=== PATIENT | female | born 1995 | race Caucasian/White ===

== ENCOUNTER 2017-10-26 16:08 | Outpatient (CLI) | payer MEDICAID ==
[2017-10-26 16:26] LABS: BASOPHILS # (AUTO) 0.1 10^3/uL (0.0-0.1); BASOPHILS % (AUTO) 0.5 %; EOSINOPHILS # (AUTO) 0.1 10^3/uL (0.0-0.7); EOSINOPHILS % (AUTO) 1.2 %; LYMPHOCYTES # (AUTO) 2.9 10^3/uL (1.5-3.5); LYMPHOCYTES % (AUTO) 27.1 %; MEAN CORPUSCULAR HEMOGLOBIN 29.1 pg (27.0-31.0); MEAN CORPUSCULAR HGB CONC 33.4 g/dL (32.0-36.0); MEAN CORPUSCULAR VOLUME 87.3 fL (81.0-99.0); MEAN PLATELET VOLUME 7.3 fL (7.9-10.8); MONOCYTES % (AUTO) 9.5 %; NEUTROPHILS # (AUTO) 6.6 10^3/uL (1.5-6.6); NEUTROPHILS % (AUTO) 61.7 %; PLT - PLATELET COUNT 303 10^3/uL (130-450); RED BLOOD COUNT 4.45 10^6/uL (4.20-5.40); RED CELL DISTRIBUTION WIDTH 14.1 % (12.0-15.0); WHITE BLOOD COUNT 10.8 x10^3/uL (4.8-10.8)
[2017-10-26 16:34] LABS: BILIRUBIN,URINE NEGATIVE (NEGATIVE); GLUCOSE, URINE (UA) NEGATIVE (NEGATIVE); KETONES,URINE (UA) NEGATIVE (NEGATIVE); LEUKOCYTE ESTERASE, URINE NEGATIVE (NEGATIVE); NITRITE,URINE NEGATIVE (NEGATIVE); OCCULT BLOOD,URINE NEGATIVE (NEGATIVE); PH,URINE 5.5 PH (5.0-7.5); PROTEIN,URINE NEGATIVE (NEGATIVE); UROBILINOGEN,URINE 1 (NORMAL) E.U./dL (NORMAL)
[2017-10-26 16:35] LABS: CLARITY,URINE CLEAR (CLEAR)
[2017-10-26 16:41] LABS: BACTERIA,URINE Moderate /HPF (None Seen); RBC,URINE 0-5 /HPF (0-5); SQUAMOUS EPITHELIAL CELL,UR MOD Squamous (<= Few)
[2017-10-27 13:31] LABS: HEPATITIS C ANTIBODY NON-REACTIVE (NON-REACTIVE)
[2017-10-27 13:33] LABS: HEPATITIS B SURFACE ANTIGEN NON-REACTIVE (NON-REACTIVE)
[2017-10-27 14:47] LABS: HIV AG/AB 4TH GEN NON-REACTIVE (NON-REACTIVE)
== END 2017-10-26 16:09 | disposition home or self-care (01) ==
LOC: LAB 16:08
PROVIDERS: ATTEND Obstetrics & Gynecology
DX: Z36.9 Encounter for antenatal screening, unspecified (principal)
CPT/HCPCS: 36415; 81001; 81599; 85025; 86592; 86762; 86803; 86850; 86900; 86901; 87340; 87389

== ENCOUNTER 2017-10-27 08:00 | Outpatient (CLI) | payer MEDICAID ==
[2017-10-27 15:16] LABS: MUDS CUTOFF CONCENTRATIONS CUTOFF CONC BELOW:
[2017-10-27 16:08] LABS: AMPHETAMINE SCREEN,URINE NEGATIVE (NEGATIVE); BENZODIAZEPINES SCREEN, URINE NEGATIVE (NEGATIVE); COCAINE SCREEN URINE NEGATIVE (NEGATIVE); METHADONE SCREEN, URINE NEGATIVE (NEGATIVE); METHAMPHETAMINES SCREEN, URINE NEGATIVE (NEGATIVE); OPIATE SCREEN, URINE NEGATIVE (NEGATIVE); OXYCODONE SCREEN, URINE NEGATIVE (NEGATIVE); PROPOXYPHENE SCREEN, URINE NEGATIVE (NEGATIVE); TRICYCLIC ANTIDEPRESSANT,URINE NEGATIVE (NEGATIVE)
== END 2017-10-27 08:01 | disposition home or self-care (01) ==
LOC: LAB.R 08:00
PROVIDERS: ATTEND Obstetrics & Gynecology
DX: Z36.9 Encounter for antenatal screening, unspecified (principal)
CPT/HCPCS: 80306

== ENCOUNTER 2017-11-13 10:41 | Outpatient (CLI) | payer MEDICAID ==
--- NOTE | 2017-11-13 16:05 | Ultrasound Report ---
Procedure Date: 11/13/2017 Accession Number: [id number] / [id number] Procedure: US - OB 14+ Weeks CPT Code: FULL RESULT: EXAM: OB 14+ Weeks DATE: 11/13/2017 12:06 PM CLINICAL HISTORY: ENCOUNTER FOR SCREENING, UNSPECIFIED TECHNIQUE: Real-time scanning was performed with office services representative static images obtained. COMPARISON: None LAST MENSTRUAL PERIOD: 07/19/2017 Clinical Age: 16 weeks 5 days US Age: 18 weeks 0 days EFW Hadlock: 214 grams EFW % Hadlock: 97% Heart Rate: 140 bpm EDC: 04/25/2018 US EDC: 04/16/2018 BPD Hadlock: 18 weeks 4 days; Mean mm 42 HC Hadlock: 18 weeks 0 days; Mean mm 150 AC Hadlock: 18 weeks 3 days; Mean mm 129 FL Hadlock: 17 weeks 1 days; Mean mm 24 Presentation: Variable Placental Location: Fundal/Anterior Cervical Length: 3.5 cm Amniotic Fluid: RENY Subjectively normal cm; MVP 11 cm FINDINGS: Within a fibroid uterus containing myometrial fibroids the largest of which measures 2.2 x 3.1 x 1.6 cm is a single viable intrauterine gestation in variable presentation with a fundal/anterior placenta without evidence of previa. The heart rate is 140 bpm and the sonographic age is 18 weeks and 0 days on today's exam. The cervix measures 3.5 cm and is closed. Adnexa appear unremarkable. IMPRESSION: Single viable intrauterine gestation with a sonographic age of 18 weeks and 0 days. Uterine fibroids.
== END 2017-11-13 10:42 | disposition home or self-care (01) ==
LOC: DI 10:41
PROVIDERS: ATTEND Obstetrics & Gynecology
DX: Z36.9 Encounter for antenatal screening, unspecified (principal); Z13.29 Encounter for screening for other suspected endocrine disorder; Z3A.18 18 weeks gestation of pregnancy
CPT/HCPCS: 36415; 76805; 84436; 84439; 84443

== ENCOUNTER 2017-11-13 10:52 | Outpatient (CLI) | payer MEDICAID ==
[2017-11-13 13:02] LABS: T4 (THYROXINE) 9.88 ug/dL (6.09-12.23)
[2017-11-13 13:06] LABS: THYROID STIMULATING HORMONE 1.35 uIU/mL (0.34-5.60)
[2017-11-13 13:08] LABS: FREE T4 (FREE THYROXINE) 0.61 ng/dL (0.58-1.64)
== END 2017-11-13 10:53 | disposition home or self-care (01) ==
LOC: LAB 10:52
PROVIDERS: ATTEND Obstetrics & Gynecology
DX: Z13.29 Encounter for screening for other suspected endocrine disorder (principal)
CPT/HCPCS: 36415; 84436; 84439; 84443

== ENCOUNTER 2017-11-16 17:02 | Outpatient (CLI) | payer MEDICAID | END 2017-11-16 17:03 | disposition home or self-care (01) | LOC: LAB 17:02 | PROVIDERS: ATTEND Obstetrics & Gynecology | DX: Z13.79 Encounter for other screening for genetic and chromosomal anomalies (principal) | CPT/HCPCS: 36415; 81599; 82105; 82677; 84702; 86336 ==

== ENCOUNTER 2017-11-30 12:37 | Outpatient (CLI) | payer MEDICAID ==
--- NOTE | 2017-11-30 15:29 | Ultrasound Report ---
Procedure Date: 11/30/2017 Accession Number: [id number] / [id number] Procedure: US - OB Detailed Eval CPT Code: FULL RESULT: EXAM: COMPLETE OBSTETRICAL ULTRASOUND EXAM DATE: 11/30/2017 02:10 PM. CLINICAL HISTORY: anatomic survey. COMPARISON: OB ultrasound 11/13/2017. TECHNIQUE: Real-time sonographic evaluation of the fetus performed by the financial health counselor. Multiple loss prevention representative static images were saved for review. DATING: Established EGA 20 weeks 3 days with OZZIE 04/16/2018 based on first ultrasound. EGA 20 weeks 5 days with OZZIE 04/14/2018 based on the current ultrasound. GENERAL EVALUATION Bird . Cardiac activity: 135 bpm. movement: Visualized. Presentation: Variable Placenta: Anterior position. No evidence for previa. Umbilical cord: 3 vessel cord. Central placental cord origin. Amniotic fluid: Subjectively normal. MVP 4.8 cm. BIOMETRY Bi-Parietal Diameter (BPD): 4.7 cm, 20 weeks 2 days Head Circumference (HC): 18.2 cm, 20 weeks 4 days Abdominal Circumference (AC): 16.4 cm, 21 weeks 3 days Femur Length (FL): 3.3 cm, 20 weeks 2 days Estimated Weight: 385 gm, 71 percentile for 20 weeks 3 days. ANATOMY The intracranial structures, profile, face/nose/lips, spine, 4 chamber heart and outflow tracts, stomach, abdominal wall and cord insertion, diaphragm, kidneys, bladder, and extremities were visualized and demonstrate no abnormality. MATERNAL STRUCTURES Uterus: Multiple uterine leiomyomas with the largest measuring 3.5 x 1.6 x 2.7 cm. Cervix: Long and closed. Transabdominal length 5.5 cm. Right ovary/adnexa: Unremarkable. Left ovary/adnexa: Unremarkable. Free fluid: None. IMPRESSION: 1. Bird live intrauterine with gestational age 20 weeks 3 days based on first ultrasound. 2. Estimated weight is within expected limits for assigned dating. 3. Normal anatomic survey. No anatomic abnormalities are detected at this time. RADIA
== END 2017-11-30 12:38 | disposition home or self-care (01) ==
LOC: DI 12:37
PROVIDERS: ATTEND Obstetrics & Gynecology
DX: Z36.9 Encounter for antenatal screening, unspecified (principal)
CPT/HCPCS: 76811

== ENCOUNTER 2017-12-11 15:03 | Outpatient (CLI) | payer MEDICAID ==
[2017-12-11 15:27] VITALS: BP 112/69
[2017-12-11 17:19] LABS: BILIRUBIN,URINE NEGATIVE (NEGATIVE); GLUCOSE, URINE (UA) NEGATIVE (NEGATIVE); KETONES,URINE (UA) TRACE mg/dL (NEGATIVE); LEUKOCYTE ESTERASE, URINE NEGATIVE (NEGATIVE); NITRITE,URINE NEGATIVE (NEGATIVE); OCCULT BLOOD,URINE NEGATIVE (NEGATIVE); PROTEIN,URINE NEGATIVE (NEGATIVE); UROBILINOGEN,URINE 1 (NORMAL) E.U./dL (NORMAL)
[2017-12-11 17:23] LABS: CLARITY,URINE CLEAR (CLEAR)
--- NOTE | 2017-12-12 01:51 | HISTORY & PHYSICAL EXAMINATION ---
DATE OF SERVICE: 12/11/2017 Physician: Bryce Lawrence MD DIAGNOSES 1. Right hip pain associated with Lumbar pain . 2. Known scoliosis. 3. A 22-week gestation. 4. Depressive disorder and anxiety, refuses medication. 5. Asthma. HISTORY OF PRESENT ILLNESS: Patient is a 22-year-old 3, para 1-0-1-1 woman who [facility] and presents to [facility] and delivery complaining of lumbar back pain and associated hip pain. She reports no contractions, leakage of fluid or pelvic pressure. She additionally notes heart palpitations and tightness in her throat. She has a history of anxiety and depression and has refused medications in the past. The patient was diagnosed w Scoliosis at the age of 15 had never underwent surgery. No one is currently monitoring or caring for her scoliosis. She does not believe her current complaints of back pain are related to her scoliosis or her anxiety disorder. EXTERNAL STRIP: No contractions. Baseline 130s, essentially normal for gestational age. LABORATORY DATA: The patient had normal thyroid study on initiation of care. Urinalysis normal today. Baseline hemoglobin 13. Rubella immune. Blood type A positive, antibody screen negative, hepatitis B surface antigen negative, HIV negative, RPR negative, hepatitis C negative. Quad marker normal. Urine toxicology negative. Baseline ultrasound 11/30/2017: Ultrasound EGA 20 weeks 5 days, setting EDC at 04/14/2018. Bird, normal heart beat, no previa, 3-vessel cord, central insertion. Head circumference greater than abdominal. Multiple uterine leiomyomas noted. PHYSICAL EXAMINATION: The patient is sitting comfortably on a gurney, a child between her legs. GENERAL: Groomed. A male child with her, plus newspaper manager. Alert, oriented. No anxiety. HEENT: No thyromegaly. NECK: Supple. LUNGS: Clear to auscultation. CARDIAC: Regular. No murmur, no gallop. ABDOMEN: No palpable contractions. EXTREMITIES: No calf tenderness. No Homans sign. Symmetric. ASSESSMENT: The patient is currently not in labor, but has musculoskeletal pain that probably relates to her scoliosis and ligament changes related to Progestogen and Relaxin affects. Her spine has not had regular care , strengthening exercises and requires reevaluation. Intend to refer to physical therapy and possibly to orthopedics. The patient's panic disorder accounts for the tachycardia. Did not believe EKG is remarkable for aberrant rhythm or reentry. Patient is homeless and in a marginal living situation, living at [facility] She states she does not always eat 3 balanced meals a day. Today her urine shows ketones a possible sign of inadequate calorie consumption. In short, this is a woman at risk and risk. Patient's 5 -year-old son may also be at risk. PLAN 1. The patient to report to the clinic on 12/14/2017 for her regular exam visit and we will arrange referral to physical therapy. 2. The patient would benefit with PCP to help manage her asthma and other problems. We will arrange referral to PCP. 3. Patient is scheduled to be evaluated at [facility] and I strongly advised her to keep her appointment. 4. Patient requires social work evaluation and recommendations. Patient may need meals support program to maintain adequate nutritional status in . Bryce Lawrence MD, FACOG, FICS Copy to Social Work Copy [facility] Copy to physical therapy TD: 12/11/2017 17:28 [facility]
== END 2017-12-11 17:45 | disposition home or self-care (01) ==
LOC: WFO 15:03 → FBP 15:06 → WFO 17:45
PROVIDERS: ATTEND Obstetrics & Gynecology
DX: Z34.82 Encounter for supervision of other normal pregnancy, second trimester (principal); Z3A.22 22 weeks gestation of pregnancy
CPT/HCPCS: 81001; 81003; 87086; 93005; 99212

== ENCOUNTER 2018-01-08 09:48 | Outpatient (CLI) | payer MEDICAID ==
--- NOTE | 2018-01-08 17:44 | Ultrasound Report ---
Reason: LEIOMYOMA OF UTERUS,UNSPECIFIED Procedure Date: 01/08/2018 Accession Number: [id number] / [id number] Procedure: US - OB F/U or Repeat CPT Code: FULL RESULT: EXAM: FOLLOW-UP OBSTETRICAL ULTRASOUND EXAM DATE: 01/08/2018 10:27 AM. CLINICAL HISTORY: LEIOMYOMA OF Uterus, unspecified. COMPARISON: 11/30/2017. TECHNIQUE: Real-time sonographic evaluation of the fetus performed by the offal roller. Multiple field sales representative static images were saved for review. DATING: Established EGA 26 weeks 0 days with OZZIE 04/16/2018 based on first ultrasound. EGA 24 weeks 5 days with OZZIE 04/25/2018 based on LMP. EGA 26 weeks 6 days with OZZIE 04/10/2018 based on the current ultrasound. GENERAL EVALUATION Bird . Cardiac activity: 136 bpm. movement: Visualized. Presentation: Breech Placenta: Anterior position. Amniotic fluid: Generous, 96th percentile. RENY 22 cm. MVP 6.8 cm. BIOMETRY Bi-Parietal Diameter (BPD): 7.05 cm, 28 weeks 2 days Head Circumference (HC): 25.04 cm, 27 weeks 1 day Abdominal Circumference (AC): 22.22 cm, 26 weeks 4 days Femur Length (FL): 4.86 cm, 26 weeks 2 days Estimated Weight: 969 g gm, 79th percentile for 26 weeks 0 days. ANATOMY Grossly unremarkable. MATERNAL STRUCTURES Multiple fibroids, the largest measuring 3.3 x 1.6 x 2.4 cm. Uterine cervix is closed, 5.0 cm. IMPRESSION: 1. Bird live intrauterine with gestational age 26 weeks 0 days based on first ultrasound, established OZZIE. 2. Estimated weight is within expected limits for assigned dating. 3. Normal interval growth compared to previous study. 4. Multiple fibroids as previously described. RADIA
== END 2018-01-08 09:49 | disposition home or self-care (01) ==
LOC: DI 09:48
PROVIDERS: ATTEND Obstetrics & Gynecology
DX: O34.12 Maternal care for benign tumor of corpus uteri, second trimester (principal); D25.9 Leiomyoma of uterus, unspecified; Z3A.26 26 weeks gestation of pregnancy
CPT/HCPCS: 76816

== ENCOUNTER 2018-02-13 14:31 | Outpatient (CLI) | payer MEDICAID ==
[2018-02-13] MEDS ORDERED: SODIUM CHLORIDE FLUSH 0.9% 10 ML SYRINGE ONE (14:42)
[2018-02-13 15:13] LABS: BILIRUBIN,URINE NEGATIVE (NEGATIVE); GLUCOSE, URINE (UA) NEGATIVE (NEGATIVE); KETONES,URINE (UA) NEGATIVE (NEGATIVE); LEUKOCYTE ESTERASE, URINE NEGATIVE (NEGATIVE); NITRITE,URINE NEGATIVE (NEGATIVE); OCCULT BLOOD,URINE NEGATIVE (NEGATIVE); PH,URINE 6.5 PH (5.0-7.5); PROTEIN,URINE NEGATIVE (NEGATIVE); UROBILINOGEN,URINE 0.2 (NORMAL) E.U./dL (NORMAL)
[2018-02-13 15:42] LABS: CLARITY,URINE CLEAR (CLEAR)
[2018-02-13] MEDS ORDERED: LACTULOSE 10 GM /15 ML UDC PO SCH (16:15)
[2018-02-13 16:22] LABS: RUPTURE OF MEMBRANES PLUS NEGATIVE (NEGATIVE)
[2018-02-13 17:29] VITALS: BP 109/56
--- NOTE | 2018-02-14 13:57 | PROVIDER PROGRESS NOTE ---
Subjective - Prog Note Date Prog Note Date: 02/13/18 Prog Note Time: 18:00 - Subjective Pt reports feeling: No change Subjective: Hilaria Elizondo is a 22-year-old 3 para 1011 woman at 31 weeks and 1 day gestation who presents today with abdominal pain that she believes is uterine contractions. She has no leakage of fluid. She reports no discharge but does have mild rectal pressure. Patient is a sporadic obstetric care with only 3 visits in our practice. He is nutritionally at risk and has a marginal living situation. An additional concern is her 5-year-old son [facility] have been previously notified. Objective - Lab Results Other Labs: Lab Results x24hrs 02/13/18 02/13/18 02/13/18 Range/Units 15:50 15:50 14:45 Urine Color YELLOW Urine Clarity CLEAR (CLEAR) Urine pH 6.5 (5.0-7.5) PH Ur Specific [place] 1.010 (1.002-1.030) Urine Protein NEGATIVE (NEGATIVE) mg/dL Urine Glucose (UA) NEGATIVE (NEGATIVE) mg/dL Urine Ketones NEGATIVE (NEGATIVE) mg/dL Urine Occult Blood NEGATIVE (NEGATIVE) Urine Nitrite NEGATIVE (NEGATIVE) Urine Bilirubin NEGATIVE (NEGATIVE) Urine Urobilinogen 0.2 (NORMAL) (NORMAL) E.U./dL Ur Leukocyte Esterase NEGATIVE (NEGATIVE) Ur Microscopic Review NOT INDICATED Urine Culture Comments NOT INDICATED Membranes Rupture NEGATIVE (NEGATIVE) Fibronectin NEGATIVE (NEGATIVE) Physical Exam - Physical Exam General: positive: No acute distress, Other (Distracted by cell phone) HEENT: positive: Moist mucous membranes Neck: positive: Supple w/out meningeal sx Cardiac: positive: Regular Rate Resipratory: positive: Clear to ausultation dc Abdomen: positive: Normal Bowel sounds Female : positive: Enlarged uterus (Roughly 30 weeks size uterus, normal resting tone no tenderness no palpable contractions heart tracing is reactive class I baseline 120s with good [id number]-hl-[id number] variability and accelerations present no consults significant D cells occasional contractions noted but not palpable.) Neurologic: positive: Alert and Oriented X 3 Assessment/Plan - Assessment/Plan Assessment: at risk, no evidence of acute concern or labor Plan: Hilaria Elizondo is at risk due to a marginal living situation, mental illness, and hesitance to utilize available resources. There is no evidence of labor and cervix is closed and may be 50% effaced. PT ROM + neg. Await GBS culture. Will try to coordinate social work case manager evaluation this week during the office visit. Note sent to Janiya Chen.
== END 2018-02-13 17:25 | disposition home or self-care (01) ==
LOC: WFO 14:31 → FBP 14:34 → WFO 17:25
PROVIDERS: ATTEND Obstetrics & Gynecology
DX: O99.343 Other mental disorders complicating pregnancy, third trimester (principal); O09.33 Supervision of pregnancy with insufficient antenatal care, third trimester; O26.893 Other specified pregnancy related conditions, third trimester; Z59.0 Homelessness; Z3A.31 31 weeks gestation of pregnancy
CPT/HCPCS: 81003; 82731; 84112; 87210; 87797; 99213; A9270; 81001; 87086